=== PATIENT | female | born 1955 | race Two or more races ===

== ENCOUNTER 2023-05-21 08:12 | Outpatient (OUT) | payer OTHER, SELFPAY ==
--- NOTE | 2023-05-21 07:45 | NM_ITS ---
Patient: RESHMA NEWELL Exam Date: 05/21/2023 : 1955 Gender:F Ordering : DR STEFANO ZAPIEN M.D. Admission #: [id number] Family : DR. ROBINA DAVISON . Order #: [id number] CLICK HERE TO VIEW EXAM RADIOLOGY REPORT PROCEDURE: NM OLIVIA PERF SPECT REST STR COMPARISON: None. INDICATIONS: SHORTNESS OF BREATH, CHEST PAIN TECHNIQUE: Exam Description: Rest/Stress one day protocol gated SPECT Rest Imagin.9 mCi Tc-99m Cardiolite IV on 05/21/2023 Stress Imaging 30.7 mCi Tc-99m Cardiolite IV on 05/21/2023 Exercise Protocol: 0.4 mg Lexiscan given IV Heart Rate (bpm): Rest: 69 Max: 88 PMHR: 56 Blood Pressure: Rest: 152/86 Max: 152/86 Symptoms: Rest and peak stress ECG findings were abnormal and the exercise portion of the study was abnormal per attending physician Dr. Davison due to EKG changes. For more details please see separate cardiac stress test report. FINDINGS: QUALITY OF STUDY: PERFUSION DEFECT: LOCATION: Mid-anterior. Apical anterior. SIZE: Small (1-2 segments). SEVERITY: Mild. TYPE: Persistent. WALL MOTION: Normal. LV SIZE: Normal. 94 mL. TID / TCD: None; 0.9 LVEF: Normal. Calculated EF 69%. SUMMARY: Myocardial perfusion imaging study has ABNORMAL findings. CONCLUSION: 1. Small fixed defect in the anterior wall, LAD distribution. This could represent breast attenuation artifact 2. No reversible ischemia 3. Abnormal exercise test secondary to EKG changes Dictated by: Miguel Angel Antoine MD on 05/22/2023 at 09:36 Approved by: Miguel Angel Antoine MD on 05/22/2023 at 09:37
[2023-05-21] MEDS: REGADENOSON 0.4 MG/5 ML SYRINGE IV (09:47)
--- NOTE | 2023-05-21 17:50 | P.STRESS_ITS ---
Stress Test Stress Test Allergies Allergy/AdvReac Type Severity Reaction Status Date / Time Penicillins AdvReac Unknown Unverified 05/21/23 09:54 Sulfa (Sulfonamide AdvReac Unknown Unverified 05/21/23 09:54 Antibiotics) Requesting physician: STEFANO ZAPIEN Procedure: Lexiscan Cardiolite stress test General Information: Reason for Stress Test: Dyspnea and chest pain Cardiac History and Risk Factors: Denies personal history. Father had CHF, Brother s/p CABG. Resting 12 - Lead Electrocardiogram: Rate & rhythm: Normal sinus at a rate of 69. [place]: Normal T-waves: Normal ST-segments: Normal Stress Test: Protocol: Vasile protocol was ordered, but due to inability to ambulate on a treadmill, the exercise component was therefore canceled.? Testing was changed to Lexiscan protocol, with injection of 0.4mg Lexiscan IV push followed by Cardiolite. Blood pressure: Initial & maximum were 152/86 Rate & rhythm: Patient remained in sinus rhythm during the exercise and recovery portions of the study.? The maximum heart rate was 88, which was 56% of the maximum predicted heart rate 156. ST-segments & T-waves: After injection of Lexiscan, there was a 1mm ST segment depression in II and 0.5mm depression in III & aVF, along with subtle depression in V5 & V6. Patient response/symptoms: There were no symptoms similar to the chief complaint. Interpretation: Abnormal Lexiscan stress test based on ST segment depression in the inferolateral leads. Cardiolite imaging interpretation will be reported separately. Clinical correlation required.?
== END 2023-05-21 08:13 | disposition home or self-care (01) ==
PROVIDERS: PCP Family Medicine; Visit Provider Family Medicine
DX: J44.9 Chronic obstructive pulmonary disease, unspecified (principal); R07.89 Other chest pain; R06.02 Shortness of breath
CPT/HCPCS: 78452; 93017; A9500; J2785

== ENCOUNTER 2023-10-08 09:20 | Outpatient (OUT) | payer OTHER, SELFPAY | END 2023-10-08 09:21 | disposition home or self-care (01) | LOC: SLEEP 09:20 | PROVIDERS: PCP Family Medicine; Visit Provider Family Medicine | DX: G47.33 Obstructive sleep apnea (adult) (pediatric) (principal) | CPT/HCPCS: 95806 ==

== ENCOUNTER 2023-11-28 11:14 | Outpatient (OUT) | payer OTHER, SELFPAY ==
--- OUTSIDE RECORDS SUMMARY | 2023-11-28 11:23 | XMS_ITS | CCD ---
Author Organization [facility] Care Team Providers Care Email Developer Name Role Phone DR SUZY BALL Primary Care Unavailable SAMSA, ROBINA Admitting Unavailable DR BERNY WARD V Consulting Unavailable SAMSA, ROBINA Attending Unavailable SAMSA, ROBINA Consulting Unavailable SAMSA, ROBINA Attending Unavailable SAMSA, ROBINA Consulting Unavailable BORA CANTU Referring Unavailable QUINN, DR ALMONTE Primary Care Unavailable SAMSA, ROBINA Admitting Unavailable CURRYSTEFANO Attending Unavailable CURRY RUGJAYDEN M Referring Unavailable CURRYSTEFANO M Referring Unavailable Allergies Allergy Classification Reported Allergen(s) Allergy Type Date of Onset Reaction(s) Facility (1 source) Penicillin Drug Allergy 07-22-1957 [facility] Repository (1 source) Sulfonamides (Antibiotic) Drug allergy (disorder) 07-22-1977 [facility] Problems Problem Classification Problem Date Documented Da te Episodic/Chronic Asthma (4 sources) Unspecified asthma, uncomplicated; Translations: [UNSPECIFIED ASTHMA UNCOMPLICATED] Onset: 11-23-2021 Chronic Results Test Name Value Interpretation Reference Range Facility CT LUNG SCREENING LOW DOSEon 08-27-2023 CT LUNG SCREENING LOW DOSE This is a summary report. The complete report is available in the patient's medical record. If you cannot access the medical record, please contact the sending organization for a detailed fax or copy. EXAMINATION: CT LUNG SCREENING LOW DOSE, 08/27/2023 10:35 AM CLINICAL HISTORY: Screening COMPARISON: None TECHNIQUE: Multidetector LDCT was performed through the chest using screening low dose CT scanning parameters without contrast. All CT scans at this facility use dose modulation, iterative reconstruction, and/or weight based dosing when appropriate to reduce radiation dose to as low as reasonably achievable. 3-D, sagittal and coronal reconstructions were performed. FINDINGS The thyroid gland is within normal limits. The axillary regions demonstrate no significant lymphadenopathy or solid or cystic lesions. There is no mediastinal lymphadenopathy. The heart and pericardium are within normal limits. There is no pericardial effusion. The great vessels of the chest are normal in course and caliber. The lungs are free of focal consolidations or infiltrates. There is a 2.3 x 2.1 x 3.8 cm area of groundglass opacity in the right lung base, medially in the axial esophageal recess. There is adjacent linear scarring. There are no pleural effusions. There are no acute bony abnormalities. The visualized portions of the upper abdomen are within normal limits. IMPRESSION: There are no acute cardiopulmonary changes. There is a nonsolid nodule in the medial right lung base in the azygos esophageal recess with the greatest diameter 3.8 cm. Lung RADS 3 Probably benign. Repeat LDCT Screening in 6 months ELECTRONICALLY SIGNED BY: Trung Alston MD Normal Not Available BI MAMMOGRAM SCREENING TOMOS YNTHESIS BILATERALon 06-27-2023 BI MAMMOGRAM SCREENING TOMOSYNTHESIS BILATERAL This is a summary report. The complete report is available in the patient's medical record. If you cannot access the medical record, please contact the sending organization for a detailed fax or copy. EXAMINATION: BI MAMMOGRAM SCREENING TOMOSYNTHESIS BILATERAL CLINICAL HISTORY: yearly COMPARISON: March 06, 2022 . RESULT: Digital mammography and 3D tomosynthesis of bilateral breasts was performed. The breasts are almost entirely fatty. There is no suspicious mass, asymmetry, architectural distortion, or calcification. Typically benign calcifications. Left central outer breast biopsy clips mid depth. Overall appearance stable. No significant axillary lymphadenopathy. IMPRESSION: BIRADS 2 - Benign. Follow-up: Routine Screening Mamm . Board Certified Radiologists. Accredited by the ACR and FDA. MAMMOGRAPHY IS VERY IMPORTANT TO YOUR HEALTH. THE [employer] SOCIET[employer] GUIDELINES RECOMMEND THAT WOMEN 40 YEARS OF AGE AND OLDER SHOULD HAVE A MAMMOGRAM EVERY YEAR. A REMINDER LETTER WILL BE SENT AT THE APPROPRIATE TIME. THIS FACILITY UTILIZES A REMINDER SYSTEM TO ENSURE ALL PATIENTS RECEIVE REMINDER NOTIFICATIONS AT THE APPROPRIATE TIME BASED ON THE RECOMMENDATIONS OF THIS EXAM. THIS INCLUDES REMINDERS FOR ROUTINE SCREENING MAMMOGRAMS, DIAGNOSTIC MAMMOGRAMS IN WHICH THE PATIENT IS ASKED TO RETURN FOR ADDITIONAL VIEWS, OR OTHER BREAST IMAGING INTERVENTIONS WHEN APPROPRIATE. THE PATIENT WILL BE PLACED IN THE APPROPRIATE REMINDER SYSTEM INCLUDING A REMINDER AT THE APPROPRIATE TIME FOR ANY PENDING ADDITIONAL VIEWS. TRANSCRIBED BY: ELECTRONICALLY SIGNED BY: Ned Erazo MD Normal Not Available XR Chest 2 Views*on 06-20-20 22 XR Chest 2 Views* HISTORY: Wheezing, SOB, asthma FINDINGS: Mild peribronchial cuffing is present, which may suggest bronchitis. No focal infiltrates or worrisome mass lesions are seen. No pneumothorax is present. Small hilar calcifications are present suggesting old granulomatous disease. Cardiac silhouette, skeletal structures and soft tissues are unremarkable. IMPRESSION: No focal infiltrates. Report reported and signed by Ned Erazo on 06/20/2022 1320 Normal [facility] Special[facility] XR Foot 2 Views Righton 11-3 XR Foot 2 Views Right FINDINGS: 1st tarsal metatarsal plate screw fusion hardware. Deep superficial soft tissues overlying the 1st tarsal metatarsal joint. One cortical screw dorsal approach 2nd metatarsal head. Moderate 1st MTP arthritis. Small plantar calcaneal spur. No acute ossoues or hardware fracture. IMPRESSION: 1st tarsal metatarsal fusion, hardware placement described above Report reported and signed by Ned Erazo on 06/20/2022 1322 A single cortical screw overlies the 1st tarsal metatarsal joint located within the deep soft tissues, not located within a bone or plate fusion hardware. No prior examinations are available to evaluate whether this represents an interval change. This likely represents a fracture screw from the proximal-most hole of the lateral-most orthopedic plate (diagrammed on the lateral image). IMPRESSION: Fracture of the proximal-most screw of the lateral-most compression plate of the 1st tarsal metatarsal fused joint Report reported and signed by Ned Erazo on 06/22/2022 0658 Normal [facility] XR Knee 3 Views Lefton 03-13 XR Knee 3 Views Left FINDINGS: Moderate to severe medial and patellofemoral joint space reduction is seen. No effusion or acute fracture is identified. Tibial plateaus are maintained in height. No significant osteophyte formation is present. Menisci are non-calcified. IMPRESSION: Moderate medial and patellofemoral osteoarthritis Report reported and signed by Ned Erazo on 03/13/2022 1259 Normal [facility] XR Shoulder Complete Right*o n 03-13-2022 XR Shoulder Complete Right* FINDINGS: Minimal osteophyte formation involves the AC joint. No fracture or dislocation or rotator cuff calcification is seen. Borderline increase in acromiohumeral distance suggests presence of a joint effusion. Upper chest is clear. IMPRESSION: 1. Minimal AC joint arthritis, no separation or fracture 2. Possible joint effusion Report reported and signed by Ned Erazo on 03/13/2022 1303 Normal [facility] XR Spine Cervical Complete w /Flex AND [place] 03-13-2022 XR Spine Cervical Complete w/Flex AND Ext FINDINGS: Cervical vertebral bodies are preserved in height. Mild disc space loss with mild posterior and moderate anterior osteophyte formation C5-6. Diffuse facet arthropathy, mild to moderate left C3-4, right C4-5 neuroforaminal stenosis. No fracture or focal soft tissue swelling is seen. Prevertebral soft tissues are normal. Flexion and extension: C1-2 - C2-3: Normal alignment, no change C3-4 - C4-5: 0 mm with extension, 2 mm anterolisthesis with flexion C5-6 - C6-7: Normal alignment, no change IMPRESSION: 1. Mid cervical arthritis, moderate bilateral neuroforaminal stenosis 2. Minimal motion C3-4 and C4-5 with flexion and extension Report reported and signed by Ned Erazo on 03/13/2022 1307 Normal [facility] SCREENING MAMMOGRAM W/DIVYA, BILATERAL*on 03-06-2022 SCREENING MAMMOGRAM W/DIVYA, BILATERAL* COMPARISON: June 30, 2019, January 20, 2018 TECHNIQUE: 2D and 3D Tomosynthesis of the right and left breasts was performed. FINDINGS: Breast composition demonstrates almost entirely fat. Overall appearance is stable. Typically benign calcifications. Left upper outer quadrant biopsy clips. IMPRESSION: BIRADS 2: Benign mammogram Board Certified Radiologist. Accredited by the ACR and FDA. MAMMOGRAPHY IS VERY IMPORTANT TO YOUR HEALTH. THE CURRENT [employer] OF [employer] AND [employer]PREHENSIVE CANCER NETWORK GUIDELINES RECOMMENDS ANNUAL MAMMOGRAPHY BEGINNING AT AGE 40 THIS FACILITY USES A REMINDER SYSTEM TO ENSURE ALL PATIENTS RECEIVE REMINDER NOTIFICATIONS AT THE APPROPRIATE TIME BASED ON THE RECOMMENDATIONS OF THIS EXAM. Report reported and signed by Ned Erazo on 03/06/2022 1303 Normal [facility] IMMUNOGLOBULIN E, TOTALon Immunoglobulin E, Total 14 IU/mL Normal 6-495 [facility] Comment on above: Performed By: #### I GETOT #### [facility] [address] [address] [address] Em Putnam ASPERGILLUS AB, QUANTITATIVE DIDon 10-30-2021 Aspergillus flavus Negative Normal Neg:<1:1 [facility] Comment on above: Performed By: #### A SPDID #### [facility] [address] [address] [address] Em Putnam Aspergillus fumigatus Negative Normal Neg:<1:1 [facility] Comment on above: Performed By: #### A SPDID #### [facility] [address] [address] [address] Em Putnam Aspergillus niger Negative Normal Neg:<1:1 [facility] Comment on above: Performed By: #### A SPDID #### [facility] [address] [address] [address] Em Putnam ANTI NEUTROPHIL CYTOPLASMIC AB (ANCA) PRon 10-28-2021 Antimyeloperoxidase (MPO) Abs <9.0 Normal 0.0-9.0 [facility] Comment on above: Result Comment: Perf ormed at: BN Performed By: #### A NCAP #### [facility] [address] [place] [address] Dr. Em Putnam Antiproteinase 3 (TN-3) Abs <3.5 Normal 0.0-3.5 [facility] Comment on above: Result Comment: Perf ormed at: BN Performed By: #### A NCAP #### [facility] [address] [place] [address] Dr. Em Putnam Atypical pANCA <1:20 Normal Neg:<1:20 [facility] Comment on above: Result Comment: The atypical pANCA pattern has been observed in a significant percentage of patients with ulcerative colitis, primary sclerosing cholangitis and autoimmune hepatitis. Performed at: CB Performed By: #### A NCAP #### [facility] [address] [place] [address] Dr. Em Putnam Cytoplasmic (C-ANCA) <1:20 Normal Neg:<1:20 [facility] Comment on above: Result Comment: Perf ormed at: CB Performed By: #### A NCAP #### [facility] [address] [place] [address] Dr. Em Putnam Perinuclear (P-ANCA) <1:20 Normal Neg:<1:20 [facility] Comment on above: Result Comment: The presence of positive fluorescence exhibiting P-ANCA or C-ANCA patterns alone is not specific for the diagnosis of Cory's Granulomatosis (WG) or microscopic polyangiitis. Decisions about treatment should not be based solely on ANCA IFA results. The International ANCA Group Consensus recommends follow up testing of positive sera with both TN-3 and MPO-ANCA enzyme immunoassays. As many as 5% serum samples are positive only by EIA. Ref. AM J Clin Pathol 1999;111:507-513. Performed at: CB Performed By: #### A NCAP #### [facility] [address] [place] [address] Dr. Em Putnam CBC AUTO DIFFon 10-25-2021 BASO # 0.1 103/ul Normal 0.0-0.1 [facility] Comment on above: Performed By: #### C BC #### [facility] [address] [place] [address] Dr. Em Putnam Basophils/100 WBC (Bld) 0.7 % Normal 0.2-2.0 [facility] Comment on above: Performed By: #### C BC #### [facility] [address] [place] [address] Dr. Em Putnam EO # 0.4 103/ul Normal 0.0-0.7 [facility] Comment on above: Performed By: #### C BC #### [facility] [address] [place] [address] Dr. Em Putnam Eosinophils/100 WBC (Bld) 4.4 % Normal 0.9-7.0 [facility] Comment on above: Performed By: #### C BC #### [facility] [address] [place] [address] Dr. Em Putnam Erythrocyte distribution width (RBC) [Ratio] 12.3 % Normal 11.0-15.0 [facility] Comment on above: Performed By: #### C BC #### [facility] [address] [place] [address] Dr. Em Putnam Hematocrit (Bld) [Volume fraction] 35.4 % Critically low 36.0-48.0 [facility] Comment on above: Performed By: #### C BC #### [facility] [address] [place] [address] Dr. Em Putnam Hemoglobin (Bld) [Mass/Vol] 11.6 g/dL Critically low 12.0-16.0 [facility] Comment on above: Performed By: #### C BC #### [facility] [address] [place] [address] Dr. Em Putnam IG # 0.03 10e3/ul Normal 0.00-0.03 [facility] Comment on above: Performed By: #### C BC #### [facility] [address] [place] [address] Dr. Em Putnam IG % 0.4 % Normal 0.0-0.5 [facility] Comment on above: Performed By: #### C BC #### [facility] [address] [place] [address] Dr. Em Putnam LYMPH # 2.9 103/ul Normal 1.2-3.8 [facility] Comment on above: Performed By: #### C BC #### [facility] [address] [place] [address] Dr. Em Putnam Lymphocytes/100 WBC (Bld) 34.6 % Normal 20.5-60.0 [facility] Comment on above: Performed By: #### C BC #### [facility] [address] [place] [address] Dr. Em Putnam MANUAL DIFF REQ NO Normal [facility] Comment on above: Performed By: #### C BC #### [facility] [address] [place] [address] Dr. Em Putnam MCH (RBC) [Entitic mass] 29.4 pg Normal 26.7-34.0 [facility] Comment on above: Performed By: #### C BC #### [facility] [address] [place] [address] Dr. Em Putnam MCHC (RBC) [Mass/Vol] 32.8 g/dL Normal 29.9-35.2 [facility] Comment on above: Performed By: #### C BC #### [facility] [id number] Em Putnam MCV (RBC) [Entitic vol] 89.8 fL Normal 81.0-99.0 [facility] Comment on above: Performed By: #### C BC #### [facility] [address] [address] [address] Em Putnam MONO # 0.5 103/ul Normal 0.3-0.8 [facility] Comment on above: Performed By: #### C BC #### [facility] [address] [address] [address] Em Putnam Monocytes/100 WBC (Bld) 6.3 % Normal 1.7-12.0 [facility] Comment on above: Performed By: #### C BC #### [facility] [address] [place] [address] Dr. Em Putnam NEUT # 4.5 103/ul Normal 1.4-6.5 [facility] Comment on above: Performed By: #### C BC #### [facility] [address] [place] [address] Dr. Em Putnam Neutrophils/100 WBC (Bld) 53.6 % Normal 43.0-75.0 [facility] Comment on above: Performed By: #### C BC #### [facility] [address] [address] [address] Em Putnam Platelet mean volume (Bld) [Entitic vol] 9.1 fL Critically low 9.5-13.5 [facility] Comment on above: Performed By: #### C BC #### [facility] [address] [place] [address] Dr. Em Putnam PLT 282 103/ul Normal 150-450 [facility] Comment on above: Performed By: #### C BC #### [facility] [id number] Em Putnam RBC 3.94 106/ul Critically low 4.20-5.40 [facility] Comment on above: Performed By: #### C BC #### [facility] [id number] Em Putnam WBC 8.4 103/ul Normal 4.0-11.0 [facility] Comment on above: Performed By: #### C #### [facility] [address] [place] [id number] [address] Em Putnam XR CHEST 2 Von 10-25-2021 XR CHEST 2 V EXAMINATION: XR CHEST 2 V HISTORY: Uncomplicated asthma COMPARISON: No relevant comparison available. TECHNIQUE: PA and lateral FINDINGS: LUNGS: No significant pulmonary parenchymal abnormalities. VASCULATURE: No increased pulmonary vasculature. PLEURA: No pneumothorax, effusion, or pleural thickening. CARDIAC: No cardiomegaly or cardiac silhouette abnormality. MEDIASTINUM: No visible mass or adenopathy. BONES: Mild degenerative disc disease and spondylosis without visible acute abnormalities. OTHER: Negative. IMPRESSION: No acute disease. Electronically authenticated by: BERNY WARD Date: 2021-10-25 12:17 Normal [facility] Encounters Encounter Date Encounter Type Care Provider Facility Start: 08-27-2023 End: 08-28-2023 ambulatory RUGEN M CURRY Not Available Start: 08-20-2023 End: 08-20-2023 ambulatory RUGEN M CURRY Not Available Start: 06-27-2023 End: 06-28-2023 ambulatory RUGEN M CURRY Not Available Start: 11-23-2021 End: 11-24-2021 ambulatory ROBINA DAVISON Facility:[facility] Start: 10-25-2021 End: 10-26-[address] DOCTOR BALL Facility:[facility] Payers Date Payer Category Payer Unknown [id number] 1959 Medicare [id number] 1959 Unknown [id number] 1955 Unknown [id number] 2.16.84 [id number] 1955 Unknown [id number] 2.16.84 [id number] 1955 Unknown [id number] 2.16.84 [id number] 1955 Unknown [id number] 2.16.84 [id number] 1955 Unknown [id number] Clinical Note 11-29-2022 Note Date & Type Note Facility 11-29-2022 Note HISTORY: Bone densit y screening COMPARISON: None. PROCEDURE: Imaging of the lumbar spine and bilateral hips was obtained for bone density evaluation. FINDINGS: REGION BMD (g/cm??) YOUNG ADULT T-SCORE AGE-MATCHED Z-SCORE LEFT NECK 0.874 0.2 1.9 RIGHT NECK 0.842 -0.1 1.6 LUMBAR (L1-L4) 1.010 -0.3 1.6 The mean BMD and corresponding T-score listed above indicates: Normal Bone Mass and places the patient at no significant risk for fracture. This information can serve as a baseline with which to compare future studies. Recommend follow-up exam in 2 years, sooner as clinically necessary. Comment: The T-score is the primary focus of the interpretation of a patient???s bone mineral density measurement. The T-score is the number of standard deviations and individual is above or below the mean value for a young female having normal bone mass. The WHO defines osteoporosis based on the T-score value: +1.0 to -0.9 : Normal bone mass -1.0 to -2.5 : Osteopenia and thus may be at future risk of fracture. -2.6 to -5.0 : Osteoporosis and at significantly increased risk of fracture. IMPRESSION: NORMAL BONE MASS : TWO YEAR FOLLOW-UP RECOMMENDED Report reported and signed by Vivian Mcleod on 11/29/2022 1027 [facility]itter Summary Purpose Family History No Family History Records FoundNo Family History Records FoundNo Family History Records Found Advance Directives No Advanced Directives Records FoundNo Advanced Directives Records FoundNo Advanced Directives Records Found Additional Source Comments INFORMATION SOURCE (unrecogn ized section and content) DATE CREATED AUTHOR 11/24/2021 [facility] DATE CREATED AUTHOR AUTHOR'S ORGANIZ ATION 11/30/2022 [facility] Specialist DATE CREATED AUTHOR AUTHOR'S ORGANIZ ATION 09/01/2023 [facility] Specialists EPIC FOR RECORDS PERTAINING TO PATIENTS WHO ARE OR HAVE BEEN ENROLLED IN A CHEMICAL DEPENDENCY/SUBSTANCEABUSE PROGRAM, SOME INFORMATION MAY BE OMITTED. This clinical summary was aggregated from multiple sources. Caution should be exercised in using it in the provision of clinical care. This summary normalizes information from multiple sources, and as a consequence, information in this document may materially change the coding, format and clinical context of patient data. In addition, data may be omitted in some cases. CLINICAL DECISIONS SHOULD BE BASED ON THE PRIMARY CLINICAL RECORDS. [facility]. provides no warranty or guarantee of the accuracy or completeness of information in this document.
[2023-11-28 11:35] LABS: Basophils Absolute Auto 0.1 10^3/uL (0.0-0.1); Basophils Percent Auto 0.7 % (0.2-2.0); Eosinophils Absolute Auto 0.3 10^3/uL (0.0-0.7); Eosinophils Percent Auto 3.4 % (0.9-7.0); Hematocrit 36.2 % (36.0-48.0); Hemoglobin 12.1 g/dL (12.0-16.0); Immature Granulocytes Abs Auto 0.02 10^3/uL (0.00-0.03); Immature Granulocytes Pct Auto 0.3 % (0.0-0.5); Lymphocytes Absolute Auto 2.6 10^3/uL (1.2-3.8); Mean Corpuscular HGB Conc 33.4 g/dL (29.9-35.2); Mean Corpuscular Hemoglobin 29.2 pg (26.7-34.0); Mean Corpuscular Volume 87.2 fL (81.0-99.0); Mean Platelet Volume 9.5 fL (9.5-13.5); Monocytes Absolute Auto 0.4 10^3/uL (0.3-0.8); Monocytes Percent Auto 5.8 % (1.7-12.0); Neutrophils Absolute Auto 4.1 10^3/uL (1.4-6.5); Neutrophils Percent Auto 54.8 % (43.0-75.0); Platelet Count 257 10^3/uL (150-450); Red Blood Count 4.15 10^6/uL (4.20-5.40); White Blood Count 7.5 10^3/uL (4.0-11.0)
[2023-11-28 12:22] LABS: Percent Iron Saturation 18.3 %
[2023-11-28 12:30] LABS: Alanine Aminotransferase 26 U/L (14-59); Albumin Globulin Ratio 1.3; Albumin Level 3.9 g/dL (3.4-5.0); Alkaline Phosphatase 96 U/L (46-116); Anion Gap 11.7; Aspartate Amino Transferase 17 U/L (15-37); BUN Creatinine Ratio 24.7; Bilirubin Total 0.4 mg/dL (0.2-1.0); Calcium 10.1 mg/dL (8.5-10.1); Carbon Dioxide 30.4 mmol/L (21.0-32.0); Chloride 97 mmol/L (98-107); Chol HDL Ratio 2.7; Cholesterol 186 mg/dL (<=200); Estimated GFR (African America >60 (>=60); Estimated GFR (Non-African Ame 60 (>=60); Globulin 3.1 g/dL; Glucose 107 mg/dL (74-106); HDL Cholesterol 68 mg/dL (40-60); Potassium 4.1 mmol/L (3.5-5.1); Sodium 135 mmol/L (136-145); TSH W/ REFLEX FT4 1.694 uIU/mL (0.358-3.740); Triglycerides 115 mg/dL (<=150)
[2023-11-28 13:04] LABS: Estimated Average Glucose 120 mg/dL; Glycohemoglobin A1C 5.8 % (4.5-6.2)
[2023-11-29 05:07] LABS: Transferrin 329 mg/dL (192-364)
== END 2023-11-28 11:15 | disposition home or self-care (01) ==
LOC: LAB 11:16
PROVIDERS: PCP Physician Assistant; Visit Provider Physician Assistant
DX: Z00.00 Encounter for general adult medical examination without abnormal findings (principal); I15.2 Hypertension secondary to endocrine disorders; D72.19 Other eosinophilia; E87.6 Hypokalemia; E78.5 Hyperlipidemia, unspecified; E11.69 Type 2 diabetes mellitus with other specified complication; R68.89 Other general symptoms and signs; E55.9 Vitamin D deficiency, unspecified; I15.9 Secondary hypertension, unspecified
CPT/HCPCS: 36415; 80053; 80061; 82306; 83036; 83540; 83550; 84443; 84466; 85025